=== PATIENT | male | born 1975 | race Caucasian/White ===

== ENCOUNTER 2023-08-17 06:26 | Day surgery (SDC) | payer OTHER ==
[2023-08-14 14:36] VITALS: BMI 30.3
[2023-08-17] MEDS ORDERED: Ketorolac Tromethamine 30 MG (1 mL) VIAL ONE (06:33)
[2023-08-17] MEDS ORDERED: Acetaminophen 500 MG TAB ONE (06:34)
[2023-08-17] MEDS ORDERED: Midazolam HCl 2 mg/2 ml Vial ONE (07:38)
[2023-08-17] MEDS ORDERED: Bupivacaine 0.25% HCL 30 ML VIAL ONE (08:19)
[2023-08-17] MEDS ORDERED: EPINEPHrine 1 MG/ML VIAL ONE (08:19)
[2023-08-17] MEDS ORDERED: Rocuronium Bromide 10 MG/ML (10ML VIAL) ONE (09:01)
[2023-08-17] MEDS ORDERED: Lidocaine 1% PF 5 ML VIAL ONE (09:01)
[2023-08-17] MEDS ORDERED: fentaNYL PF 100 MCG/2 ML SYRINGE ONE (09:01)
[2023-08-17] MEDS ORDERED: Sodium Chloride 0.9% 100 ML ONE (09:04)
[2023-08-17] MEDS ORDERED: CEFAZOLIN 2 GM VIAL ONE (09:04)
[2023-08-17] MEDS ORDERED: PROPOFOL 200 MG/20 ML VIAL ONE (09:16)
[2023-08-17] MEDS ORDERED: Dexamethasone 20 MG/5 ML VIAL ONE (09:28)
[2023-08-17] MEDS ORDERED: ePHEDrine Sulfate 50 MG/10 ML VIAL ONE (09:29)
[2023-08-17] MEDS ORDERED: Ondansetron PF 4 MG/2 ML Vial ONE (11:06)
[2023-08-17] MEDS ORDERED: SUGAMMADEX SODIUM 200 MG/2 ML VIAL ONE (11:08)
[2023-08-17] MEDS ORDERED: fentaNYL 50 mcg/mL 1 mL Vial ONE (11:57)
[2023-08-17] MEDS ORDERED: HYDROcodone/Acetaminophen 5/325 mg Tablet ONE (12:53)
== END 2023-08-17 13:50 | disposition home or self-care (01) ==
LOC: SDC 06:26
PROVIDERS: ATTEND Specialist
PROC: 0WQF4ZZ Repair Abdominal Wall, Percutaneous Endoscopic Approach (ICD-10-PCS; principal; 2023-08-17)
DX: K42.9 Umbilical hernia without obstruction or gangrene (principal); K43.9 Ventral hernia without obstruction or gangrene
CPT/HCPCS: C1713; J0171; J1100; J1885; J2250; J2405; J2704; J3010; J3490; S0020